=== PATIENT | male | born 1985 | race Caucasian/White ===

== ENCOUNTER 2018-01-31 17:31 | Emergency (ER) | payer MEDICAID ==
[~2018-01-31] VITALS: Ht 180.3 cm; Wt 100.0 kg
[2018-01-31 17:36] VITALS: Ht 180.3 cm; Wt 100.0 kg
[2018-01-31] MEDS ORDERED: NAPROSYN500 MG PO (20:55)
[2018-01-31] MEDS ORDERED: TYLENOL W/CODEI1 TAB PO (20:55)
[2018-01-31 21:10] VITALS: BP 138/67
== END 2018-01-31 21:10 | disposition home or self-care (01) ==
LOC: D.ER 17:31
DX: S80.01XA Contusion of right knee, initial encounter (principal); W11.XXXA Fall on and from ladder, initial encounter; Y93.89 Activity, other specified; Y92.019 Unspecified place in single-family (private) house as the place of occurrence of the external cause; S93.601A Unspecified sprain of right foot, initial encounter; F17.200 Nicotine dependence, unspecified, uncomplicated

== ENCOUNTER 2019-09-04 17:08 | Emergency (ER) | payer MEDICAID ==
[~2019-09-04] VITALS: Ht 180.3 cm; Wt 101.4 kg
[~2019-09-04 17:08] MED LIST: NAPROSYN500 MG PO; TYLENOL W/CODEI1 TAB PO
[2019-09-04 17:17] VITALS: Ht 180.3 cm; Wt 101.4 kg
[2019-09-04] MEDS ORDERED: TRAZODONE HCL150 MG (17:22)
[2019-09-04] MEDS ORDERED: NEURONTIN600 MG (17:22)
[2019-09-04] MEDS ORDERED: ZANAFLEX4 MG (17:22)
[2019-09-04] MEDS ORDERED: [UNRECOGNIZED DRUG - OTHER] (17:23)
[2019-09-04 19:00] LABS: ANION GAP 13.6 mmol/L (8-16); CALCIUM 8.6 mg/dL (8.5-10.1); CARBON DIOXIDE 24.4 mmol/L (21.0-32.0); CREATININE - SERUM 1.4 mg/dL (0.6-1.3)
[2019-09-04 19:05] LABS: ALBUMIN 3.5 g/dL (3.4-5.0); BILIRUBIN - TOTAL 0.86 mg/dL (0.2-1.3); PROTEIN - SERUM 7.2 g/dL (6.4-8.2)
[2019-09-04 19:17] LABS: HEMATOCRIT 45.4 % (42.0-54.0); HEMOGLOBIN 16.1 g/dL (13.5-17.5); MCH 30.9 pg (26.0-34.0); MCHC 35.5 g/dL (31.0-37.0); MCV 87.1 fL (80.0-100.0); MEAN PLATELET VOLUME 10.2 fL (7.4-10.4); PLATELET COUNT 213 10x3/uL (130-400); RBC 5.21 10x6/uL (4.20-6.10); RDW 12.8 % (11.5-14.5); WBC 24.5 10x3/uL (4.8-10.8)
[2019-09-04 19:29] LABS: BILIRUBIN NEGATIVE (NEGATIVE); GLUCOSE NEGATIVE (NEGATIVE); KETONE NEGATIVE (NEGATIVE); NITRITE NEGATIVE (NEGATIVE); UROBILINOGEN NORMAL (NORMAL)
[2019-09-04 19:31] LABS: BACTERIA FEW /hpf (NEGATIVE); RED CELLS - URINE 0-5 /hpf (0-5)
[2019-09-04] MEDS ORDERED: PROMETHAZINE W473 ML PO (19:37)
[2019-09-04 19:40] LABS: LYMPHOCYTES 14 % (15-50); MONOCYTES 5 % (2-11); NEUTROPHILS 81 % (40-80); PLATELET ESTIMATE NORMAL
[2019-09-04] MEDS ORDERED: KEFLEX500 MG PO (19:43)
[2019-09-04 20:03] VITALS: BP 130/89
== END 2019-09-04 20:04 | disposition home or self-care (01) ==
LOC: D.ER 17:08
PROVIDERS: Family Medicine
DX: R11.10 Vomiting, unspecified (principal); K52.9 Noninfective gastroenteritis and colitis, unspecified; N39.0 Urinary tract infection, site not specified